=== PATIENT | female | born 1985 | race American Indian/Alaskan Native ===

== ENCOUNTER 2020-07-10 12:45 | Outpatient (CLI) | payer OTHER ==
--- NOTE | 2020-07-10 14:10 | XRay Report ---
RIGHT HIP 3 VIEWS INDICATION: LEFT KNEE PAIN. COMPARISON: None. IMPRESSION: No acute osseous or soft tissue abnormality. No significant DJD. There is been previo us internal fixation of a healed femoral shaft fracture. LEFT KNEE 3 VIEWS INDICATION: LEFT KNEE PAIN. COMPARISON: None. IMPRESSION: There is been previous internal stabilization of the proximal tibia with metal plate and screws, correlate with history. No acute osseous abnormality or bone lesion is identified. Early po sttraumatic degenerative changes are identified in the left knee. The soft tissues are unremarkable. Signer Name: Yobany Rowland Jr, MD Signed: 07/10/2020 2:06 PM Workstation Name: [id number]
[2020-07-10 14:41] LABS: Free T4 (Free Thyroxine) 1.42 ng/dL (0.76-1.46)
== END 2020-07-10 12:46 | disposition home or self-care (01) ==
LOC: LAB 12:45
PROVIDERS: ATTEND Internal Medicine
DX: M17.12 Unilateral primary osteoarthritis, left knee (principal)
CPT/HCPCS: 36415; 84439; 84443